=== PATIENT | female | born 1960 ===

== ENCOUNTER → 2017-06-28 | Day surgery (SDC) | payer OTHER ==
[~2017-06-28] MED LIST: SYMBICORT 16010.2 GM IH; SYNTHROID50 MCG PO; XARELTO10 MG PO; ZANTAC300 MG PO; [UNRECOGNIZED DRUG - OTHER] PO
== END | disposition home or self-care (01) ==
LOC: ADM 06-26 15:30 → CIR.AMB 06:38
DX: M75.01 Adhesive capsulitis of right shoulder (principal); M87.121 Osteonecrosis due to drugs, right humerus

== ENCOUNTER 2022-07-31 08:33 | Outpatient (CLI) | payer OTHER | END 2022-07-31 08:41 | disposition home or self-care (01) | LOC: RX STUDY 08:33 | PROVIDERS: ATTEND Internal Medicine Gastroenterology | DX: R10.13 Epigastric pain (principal) ==

== ENCOUNTER 2024-12-25 10:37 | Outpatient (CLI) | payer OTHER | END 2024-12-25 10:50 | disposition home or self-care (01) | LOC: SONOGRAMA 10:37 | PROVIDERS: ATTEND Internal Medicine Pulmonary Disease | DX: K76.0 Fatty (change of) liver, not elsewhere classified (principal); I82.890 Acute embolism and thrombosis of other specified veins; I10 Essential (primary) hypertension; R91.8 Other nonspecific abnormal finding of lung field; Z85.3 Personal history of malignant neoplasm of breast; J70.1 Chronic and other pulmonary manifestations due to radiation; E11.9 Type 2 diabetes mellitus without complications; C34.11 Malignant neoplasm of upper lobe, right bronchus or lung; C50.911 Malignant neoplasm of unspecified site of right female breast; E03.9 Hypothyroidism, unspecified; Z86.711 Personal history of pulmonary embolism ==